=== PATIENT | female | born 1960 | race Caucasian/White ===

== ENCOUNTER 2021-02-09 10:17 | Outpatient (CLI) | payer BC, SELFPAY ==
--- NOTE | ~2021-02-09 | DEXA_ITS ---
Bone Density Report Name: Kristina Treviño Age: 61 Sex: Female Ethnicity: White Date of : 1960 Indication: postmenopausal; cancer; hysterectomy; Referring Provider: PHYSICIAN NOT ON STAFF Study: Bone densitometry was performed. Exam Date: February 09, 2021 Accession number: [id number] Bone Density: Region BMD T-score Z-score Classification AP Spine (L1-L4) 0.901 -1.3 0.2 Osteopenia Femoral Neck (Left) 0.676 -1.6 -0.2 Osteopenia Total Hip (Left) 0.792 -1.2 -0.2 Osteopenia Total Hip Bilateral Avg 0.791 -1.3 -0.3 Osteopenia Femoral Neck (Right) 0.742 -1.0 0.4 Normal Total Hip (Right) 0.789 -1.3 -0.3 Osteopenia World Health Organization criteria for BMD impression classify patients as: Normal (T-score at or above -1.0), Osteopenia (T-score between -1.0 and -2.5), or Osteoporosis (T-score at or below -2.5). 10-year Fracture Risk(1): Major Osteoporotic Fracture 8.4% Hip Fracture 0.7% Reported Risk Factors: [place] (), Neck BMD=0.676, BMI=25.7 (1) FRAX(R) Version 3.08. Fracture probability calculated for an untreated patient. Fracture probability may be lower if the patient has received treatment. Previous Exams: Region Exam Age BMD T-score BMD Change BMD Change Date g/cm2 vs Baseline vs Previous AP Spine(L1-L4) 02/09/2021 61 0.901 -1.3 -0.201(-18.3%) -0.033(-3.5%)* 09/04/2018 58 0.934 -1.0 -0.168(-15.3%) -0.107(-10.3%) 12/05/2014 54 1.041 -0.1 -0.061(-5.6%)# -0.061(-5.6%)# 04/16/2010 50 1.102 0.5 Total Hip(Left) 02/09/2021 61 0.792 -1.2 -0.096(-10.9%) -0.037(-4.5%)* 09/04/2018 58 0.829 -0.9 -0.059(-6.6%)# -0.061(-6.9%)* 12/05/2014 54 0.890 -0.4 0.002(0.3%)# 0.002(0.3%)# 04/16/2010 50 0.888 -0.4 Total Hip(Right) 02/09/2021 61 0.789 -1.3 -0.078(-9.0%)# -0.031(-3.8%)* 09/04/2018 58 0.820 -1.0 -0.047(-5.4%)# -0.047(-5.5%)* 12/05/2014 54 0.867 -0.6 0.001(0.1%)# 0.001(0.1%)# 04/16/2010 50 0.867 -0.6 *Denotes significance at 95% confidence level, LSC for AP Spine = 0.022 g/cm2, LSC for Total Hip = 0.027 g/cm2 Clinical Information Provided by Patient: Has used the following medications: Vitamin D, Calcium Has the following medical conditions: Cancer, Hysterectomy Patient maximum height was 64 Menopause Age: 50 Drinks caffeinated beverages Onset of menses at age 11 Number of children 4 Impression: The patient has low bone mass, based on the Left Femoral
== END 2021-02-09 10:18 | disposition home or self-care (01) ==
DX: E28.39 Other primary ovarian failure (principal); M85.88 Other specified disorders of bone density and structure, other site; M85.852 Other specified disorders of bone density and structure, left thigh; M85.851 Other specified disorders of bone density and structure, right thigh
CPT/HCPCS: 77080

== ENCOUNTER 2023-08-16 08:44 | Outpatient (CLI) | payer BC, SELFPAY ==
--- NOTE | ~2023-08-16 | DEXA_ITS ---
Bone Density Report Name: ABHI OQUENDO Age: 63 Sex: Female Ethnicity: White Date of : 1960 Indication: postmenopausal; screening for osteoporosis; cancer; hysterectomy; Referring Provider: ADRIENNE, DANUTA Dorman Study: Bone densitometry was performed. Exam Date: August 16, 2023 Accession number: [id number] Bone Density: Region BMD T-score Z-score Classification AP Spine(L1-L4) 0.966 -0.7 0.9 Normal Femoral Neck (Left) 0.742 -1.0 0.5 Normal Total Hip (Left) 0.807 -1.1 0.0 Osteopenia Femoral Neck (Right) 0.745 -0.9 0.5 Normal Total Hip (Right) 0.775 -1.4 -0.2 Osteopenia Total Hip Mean 0.791 -1.3 -0.1 Osteopenia World Health Organization criteria for BMD impression classify patients as: Normal (T-score at or above -1.0), Osteopenia (T-score between -1.0 and -2.5), or Osteoporosis (T-score at or below -2.5). 10-year Fracture Risk: FRAX not reported because: Treated for osteoporosis Clinical Information Provided by Patient: Is being treated for osteoporosis Has used the following medications: Fosamax (i.e. alendronate), Vitamin D, Calcium Has the following medical conditions: Cancer, Hysterectomy Patient maximum height was 64 Menopause Age: 44 Drinks caffeinated beverages Onset of menses at age 11 Number of children 4 Impression: The patient has low bone mass, based on the Right Total Hip T-score. Discussion: It is important to ask patients whether they are taking their medications and to encourage continued and appropriate compliance with their osteoporosis therapies to reduce fracture risk. It is also important to review their risk factors and encourage appropriate calcium and vitamin D intakes, exercise, fall prevention and other lifestyle measures. Follow-Up: Consider a repeat BMD and Vertebral Fracture Assessment (VFA) exam in 2 years or sooner if medically necessary, to reassess this patient's status. Reported by: [facility] on 08/16/2023 9:15:00 AM. Reviewed, dictated and finalized at location A.
== END 2023-08-16 08:45 | disposition home or self-care (01) ==
LOC: ANHIMG 08:49
PROVIDERS: PCP Internal Medicine; Visit Provider Internal Medicine
DX: Z78.0 Asymptomatic menopausal state (principal); M85.89 Other specified disorders of bone density and structure, multiple sites; M85.852 Other specified disorders of bone density and structure, left thigh; M85.851 Other specified disorders of bone density and structure, right thigh
CPT/HCPCS: 77080